=== PATIENT | female | born 1985 | race Asian ===

== ENCOUNTER 2016-10-10 01:25 | Inpatient (IN) | payer OTHER, MEDICAID ==
[~2016-10-10] VITALS: Ht 162.6 cm; Wt 59.0 kg
[2016-10-10] MEDS ORDERED: ROPIVACAINE 0.2%/NS PREMIX 250 ML EPI ONE (02:58)
[2016-10-10] MEDS ORDERED: LACTATED RINGERS 1,000 ML IV SCH (03:14)
[2016-10-10] MEDS ORDERED: OXYTOCIN 20 UNITS/LR PREMIX 1,000 ML IV SCH (03:14)
[2016-10-10] MEDS ORDERED: METHYLERGONOVINE 0.2 MG/ML AMP IM SCH (03:15)
[2016-10-10] MEDS ORDERED: NALBUPHINE 10 MG/ML AMP IVP PRN (03:15)
[2016-10-10] MEDS ORDERED: CARBOPROST 250 MCG/ML AMP IM PRN (03:15)
[2016-10-10] MEDS ORDERED: ROPIVACAINE 0.2%/NS PREMIX 250 ML EPI SCH (03:15)
[2016-10-10] MEDS ORDERED: PROMETHAZINE 25 MG/ML VIAL IVP PRN (03:15)
[2016-10-10] MEDS ORDERED: PRENATAL VITAMI1 TA2 PO (03:23)
[2016-10-10] MEDS ORDERED: OXYTOCIN 10 UNITS/ML VIAL IM SCH (03:27)
[2016-10-10] MEDS ORDERED: NIFEdipine 10 MG CAPLF ONE (03:32)
[2016-10-10] MEDS ORDERED: OXYTOCIN 20 UNITS/LR PREMIX 1,000 ML IV ONE (03:43)
[2016-10-10 05:36] VITALS: BP 112/79
--- NOTE | 2016-10-10 08:34 | NUR ---
PATIENT HAS BEEN SCREENED AND CATEGORIZED LOW NUTRITION RISK. PATIENT WILL BE SEEN WITHIN 7 DAYS OF ADMISSION. 10/16/[address]
[2016-10-10] MEDS ORDERED: OXYTOCIN 10 UNITS/ML VIAL ONE (12:31)
[2016-10-10] MEDS ORDERED: TEMAZEPAM 15 MG CAP PO PRN (15:30)
[2016-10-10] MEDS ORDERED: WITCH HAZEL 40 PAD PACKAGE TP PRN (15:30)
[2016-10-10] MEDS ORDERED: BENZOCAINE/MENTHOL 20%-0.5% 60 GM CAN TP PRN (15:30)
[2016-10-10] MEDS ORDERED: IBUPROFEN 800 MG TAB PO PRN (15:30)
[2016-10-10] MEDS ORDERED: oxyCODONE/APAP 5/325 MG 1 TAB TAB PO PRN (15:30)
[2016-10-10] MEDS ORDERED: METHYLERGONOVINE 0.2 MG/ML AMP IM PRN (15:30)
[2016-10-10] MEDS ORDERED: MEASLES, MUMPS, AND RUBELLA 1 VIAL SQVAC PRN (15:30)
[2016-10-10] MEDS ORDERED: OXYTOCIN 10 UNITS/ML VIAL IM PRN (15:30)
[2016-10-10] MEDS ORDERED: AMMONIA AROMATIC 1 INHL INH ONE ×2 (15:38→15:40)
[2016-10-10] MEDS: HYDROcodone/APAP 5/325 MG 1 TAB TAB PO PRN (16:42)
[2016-10-10] MEDS ORDERED: DOCUSATE SOD/SENNA 50/8.6 MG 1 TAB PO SCH (21:00)
[2016-10-10] MEDS: IBUPROFEN 800 MG TAB PO PRN (22:31)
[2016-10-10] MEDS ORDERED: INFLUENZA VIRUS VACCINE QUAD 0.5 ML SYR IMVAC SCH (23:00)
[2016-10-11] MEDS: HYDROcodone/APAP 5/325 MG 1 TAB TAB PO PRN ×2 (08:47→17:36)
--- NOTE | 2016-10-11 13:04 | NUR ---
CM NOTE OB DELIVERY & REVIEW FAXED TO [facility] / FAX# [phone], ATTN: KELVIN #[phone] [id number]
[2016-10-12] MEDS: IBUPROFEN 800 MG TAB PO PRN ×3 (00:03→13:31)
[2016-10-12] MEDS ORDERED: SODIUM PHOSPHATE 118 ML ENEM RC PRN (07:40)
== END 2016-10-12 16:45 | disposition home or self-care (01) | DRG 775 ==
LOC: MLD 01:25 → OBSVTOIN 03:14 → MFCC 16:29
PROVIDERS: ADMIT Obstetrics & Gynecology; ATTEND Obstetrics & Gynecology
PROC: 10E0XZZ Delivery of Products of Conception, External Approach (ICD-10-PCS; principal; 2016-10-10)
PROC: 0KQM0ZZ Repair Perineum Muscle, Open Approach (ICD-10-PCS; 2016-10-10)
PROC: 3E0S3CZ (ICD-10-PCS; 2016-10-10)
PROC: 10907ZC Drainage of Amniotic Fluid, Therapeutic from Products of Conception, Via Natural or Artificial Opening (ICD-10-PCS; 2016-10-10)
DX: O70.1 Second degree perineal laceration during delivery (principal); Z37.0 Single live birth; Z3A.39 39 weeks gestation of pregnancy